=== PATIENT | male | born 2000 | race Caucasian/White ===

== ENCOUNTER 2024-11-30 23:42 | Emergency (ER) | payer OTHER ==
[~2024-11-30] VITALS: Ht 188 cm; Wt 125.0 kg
[2024-12-01] VITALS: TEMP 97.8
[2024-12-01] MEDS: TraMADol HCL 50 MG TABLET PO ONE (02:00)
[2024-12-01 04:00] VITALS: BP 124/74; PULSE 78; RESP 18; O2SAT 99
== END 2024-12-01 05:56 ==
LOC: EMS 23:46
DX: S82.891A Other fracture of right lower leg, initial encounter for closed fracture (principal); S92.002A Unspecified fracture of left calcaneus, initial encounter for closed fracture; W22.01XA Walked into wall, initial encounter; Y93.89 Activity, other specified; Y92.89 Other specified places as the place of occurrence of the external cause; Y99.8 Other external cause status
CPT/HCPCS: 99284